=== PATIENT | female | born 1985 | race Caucasian/White ===

== ENCOUNTER 2023-11-20 07:03 | Inpatient (IN) | payer BC, MEDICAID ==
[~2023-11-20 07:03] MED LIST: Bupivacaine 0.25% 10 ML SDV ONE; Sodium Chloride 0.9% 10 ML SDV ONE
[2023-11-20] MEDS ORDERED: Sodium Chloride 0.9% 10 ML Syringe FLUSH PRN ×3 (07:11→17:07)
[2023-11-20] MEDS ORDERED: Lidocaine 1% 50 ML MDV INJECT PRN (07:11)
[2023-11-20] MEDS ORDERED: Nalbuphine 10 MG/ML Syringe IVPUSH PRN (07:11)
[2023-11-20] MEDS ORDERED: Ondansetron 4 MG/2 ML SDV IVPUSH PRN ×4 (07:11→16:33)
[2023-11-20] MEDS ORDERED: Oxytocin/0.9 % Sodium Chloride 30 UNIT/500 ML BAG IV SCH ×2 (07:15)
[2023-11-20] MEDS ORDERED: Nalbuphine 10 MG/1 ML Vial IVPUSH PRN (07:16)
[2023-11-20 07:35] LABS: BASOPHILS PERCENT AUTO 0.3 % (0.0-1.0); EOSINOPHILS ABSOLUTE AUTO 0.3 K/mm3 (0.0-0.4); EOSINOPHILS PERCENT AUTO 3.8 % (0.0-6.0); HEMATOCRIT 35.8 % (37.0-47.0); HEMOGLOBIN 12.2 gm/dl (12.0-16.0); IMMATURE GRAN ABSOLUTE AUTO 0.04 K/mm3 (0.00-0.05); IMMATURE GRAN PERCENT AUTO 0.5 % (0.0-0.4); LYMPHOCYTES ABSOLUTE AUTO 1.8 K/mm3 (1.0-4.8); LYMPHOCYTES PERCENT AUTO 21.3 % (24.0-44.0); MEAN CORPUSCULAR HGB CONC 34.1 g/dl (32.0-36.0); MEAN PLATELET VOLUME 10.1 fl (9.4-12.3); MONOCYTES ABSOLUTE AUTO 0.5 K/mm3 (0.0-0.8); MONOCYTES PERCENT AUTO 6.2 % (0.0-8.0); NEUTROPHILS ABSOLUTE AUTO 5.9 K/mm3 (1.8-7.7); NEUTROPHILS PERCENT AUTO 67.9 % (41.0-71.0); PLATELET COUNT,PLT 179 K/mm3 (150-400); RED BLOOD CELL COUNT 3.81 M/mm3 (4.10-5.30); WHITE BLOOD CELL COUNT,WBC 8.65 K/mm3 (3.9-11.3)
[2023-11-20] MEDS: Ampicillin 2 GM in Sodium Chloride 0.9% 100 ML IV ONE (07:43)
[2023-11-20] MEDS: Sodium Chloride 0.9% 10 ML Syringe FLUSH SCH (10:15)
[2023-11-20] MEDS: Ampicillin 1 GM in Sodium Chloride 0.9% 100 ML IV SCH (11:31)
[2023-11-20] MEDS ORDERED: ePHEDrine 50 MG/ML SDV IVPUSH PRN ×2 (13:34→17:07)
[2023-11-20] MEDS ORDERED: diphenhydrAMINE 50 MG/ML SDV IVPUSH PRN ×3 (13:34→16:04)
[2023-11-20] MEDS: Lactated Ringers 1,000 ML IV SCH (13:36)
[2023-11-20] MEDS: fentaNYL 100 MCG/2 ML SDV EPIDUR PRN (13:47)
[2023-11-20] MEDS: Bupivacaine/fentaNYL/NS 100 ML Bag EPIDUR PRN (13:48)
[2023-11-20] MEDS: Metoclopramide 10 MG/2 ML SDV IVPUSH ONE (15:27)
[2023-11-20] MEDS: Azithromycin 500 MG in Sodium Chloride 0.9% 250 ML IV STA (15:27)
[2023-11-20] MEDS ORDERED: Sodium Bicarbonate 8.4% 50 MEQ/50 ML SDV ONE (15:27)
[2023-11-20] MEDS ORDERED: Lidocaine 2% with EPINEPHrine 1:200,000 20 ML SDV ONE (15:27)
[2023-11-20] MEDS: Citric Acid/Sodium Citrate Solution 30 ML Cup PO ONE (15:27)
[2023-11-20] MEDS ORDERED: ceFAZolin 2 GM Vial ONE (15:33)
[2023-11-20] MEDS ORDERED: Morphine PF 10 MG/10 ML SDV ONE (15:35)
[2023-11-20] MEDS ORDERED: Ondansetron 4 MG/2 ML SDV ONE (15:39)
[2023-11-20] MEDS ORDERED: Metoclopramide 10 MG/2 ML SDV ONE (15:55)
[2023-11-20] MEDS ORDERED: Ketorolac 30 MG/ML SDV ONE (15:56)
[2023-11-20] MEDS ORDERED: Meperidine 50 MG/ML Vial IVPUSH PRN ×2 (16:04→16:33)
[2023-11-20] MEDS ORDERED: fentaNYL 100 MCG/2 ML SDV IVPUSH PRN ×3 (16:04→16:33)
[2023-11-20] MEDS ORDERED: HYDROmorphone 0.5 MG/0.5 ML Syringe IVPUSH PRN (16:10)
[2023-11-20] MEDS ORDERED: Ondansetron 4 MG/2 ML SDV IV PRN (17:07)
[2023-11-20] MEDS ORDERED: Naloxone 0.4 MG/ML SDV IVPUSH PRN (17:07)
[2023-11-20] MEDS: Dextrose 5%-Lactated Ringers 1,000 ML IV SCH (19:31)
[2023-11-20] MEDS: Ondansetron 4 MG/2 ML SDV IVPUSH PRN (20:41)
[2023-11-20] MEDS ORDERED: Sodium Chloride 0.9% 10 ML Syringe FLUSH SCH (21:00)
[2023-11-20] MEDS ORDERED: Promethazine 25 MG Tab PO PRN (23:15)
[2023-11-20] MEDS: Ketorolac 30 MG/ML SDV IVPUSH SCH (23:29)
[2023-11-21 05:58] LABS: HEMATOCRIT 30.4 % (37.0-47.0); HEMOGLOBIN 10.3 gm/dl (12.0-16.0); MEAN CORPUSCULAR HEMOGLOBIN 32.2 pg (28.0-32.0); MEAN CORPUSCULAR HGB CONC 33.9 g/dl (32.0-36.0); MEAN PLATELET VOLUME 10.4 fl (9.4-12.3); PLATELET COUNT,PLT 177 K/mm3 (150-400); WHITE BLOOD CELL COUNT,WBC 13.25 K/mm3 (3.9-11.3)
[2023-11-21] MEDS: Docusate Sodium 100 MG Cap PO SCH (10:41)
[2023-11-21] MEDS: Ibuprofen 600 MG Tab PO SCH (18:33)
[2023-11-21] MEDS: Acetaminophen/oxyCODONE 325-5 MG Tab PO PRN (21:23)
[2023-11-22] MEDS: Acetaminophen/oxyCODONE 325-5 MG Tab PO PRN (04:17)
== END 2023-11-22 10:40 | disposition home or self-care (01) | DRG 788 ==
LOC: JD.OBCHECK 07:03 → JD.OB 07:06 → JD.OBCHECK 07:11 → JD.OB 07:12 → OBSVTOIN 15:45 → JD.OB 15:46
PROVIDERS: ADMIT Obstetrics & Gynecology; ATTEND Obstetrics & Gynecology
PROC: 10D00Z1 Extraction of Products of Conception, Low, Open Approach (ICD-10-PCS; principal; 2023-11-20 15:30)
DX: O76 Abnormality in fetal heart rate and rhythm complicating labor and delivery (principal); Z3A.39 39 weeks gestation of pregnancy; Z37.0 Single live birth; O99.824 Streptococcus B carrier state complicating childbirth; O62.2 Other uterine inertia; O64.0XX0 Obstructed labor due to incomplete rotation of fetal head, not applicable or unspecified
CPT/HCPCS: 36415; 51701; 59025; 85025; 85027; 86592; 86850; 86900; 86901; 94762; A9270-GY; J0290; J0456; J0665; J0690; J1885; J2274; J2405; J2765; J3010; J3490; J7050; J7120; J7121